=== PATIENT | female | born 1965 | race Caucasian/White ===

== ENCOUNTER 2017-03-22 11:23 | Emergency (ER) | payer OTHER ==
[~2017-03-22] VITALS: Ht 160 cm; Wt 79.5 kg
[~2017-03-22 11:23] MED LIST: PAROXETINE20 MG PO
[2017-03-22 12:04] LABS: HEMATOCRIT 39.4 % (37.0-47.0); HEMOGLOBIN 13.6 g/dl (12.0-16.0); IMMATURE GRANULOCYTES 0.1 % (0.0-1.0); MEAN CELL VOLUME 89.7 fL CALC (80.0-100.0); MEAN CORPUSCULAR HGB CONC 34.5 g/L CALC (32.0-36.0); NEUT# 3.88 thou/uL (2.00-7.15); RED BLOOD COUNT 4.39 mill/uL (4.20-5.60); RED CELL DISTRI WIDTH 14.2 % (11.5-15.5)
[2017-03-22 12:09] LABS: ALBUMIN 4.8 g/dL (3.2-5.0); ALKALINE PHOSPHATASE 86 u/l (38-126); ANION GAP 18 (6-22 (CALC)); BILIRUBIN, TOTAL 0.8 mg/dL (0.0-1.4); BUN 12 mg/dL (7-17); BUN/CREATININE RATIO 16 (12-20 (CALC)); CARBON DIOXIDE 20 mmol/l (22-30); CHLORIDE 107 mmol/l (95-108); CREATININE 0.7 mg/dL (0.5-1.0); GFR > 60 ML/MIN (>=60 (CALC)); GFR FOR AFR.AMER. > 60 ML/MIN (>=60 (CALC)); GLUCOSE 106 mg/dL (65-105); POTASSIUM 3.6 mmol/l (3.5-5.1); SGOT/AST 37 u/l (14-36); SGPT/ALT 48 u/l (9-52); SODIUM 140 mmol/l (137-146); TOTAL PROTEIN 8.4 g/dL (6.3-8.2)
[2017-03-22 12:19] LABS: MYOGLOBIN 24 ng/mL (0 - 62)
[2017-03-22] MEDS ORDERED: ZOFRAN ODT4 MG PO (14:07)
[2017-03-22] MEDS ORDERED: MECLIZINE25 MG PO (14:07)
[2017-03-22 14:12] VITALS: BP 127/65
[2017-03-22 14:34] LABS: URINE BILIRUBIN - DIPSTICK NEGATIVE (NEGATIVE); URINE BLOOD DIPSTICK NEGATIVE (NEGATIVE); URINE CLARITY CLEAR; URINE COLOR YELLOW; URINE GLUCOSE - DIPSTICK NEGATIVE (NEGATIVE); URINE KETONE NEGATIVE (NEGATIVE); URINE LEUK ESTERASE NEGATIVE (NEGATIVE); URINE NITRITE - DIPSTICK NEGATIVE (Negative); URINE PH 7.5 (4.5-8.0); URINE PROTEIN - DIPSTICK NEGATIVE (NEG-TRACE); URINE SPECIFIC GRAVITY 1.015; URINE UROBILINOGEN - DIPSTICK 0.2 E.U./dL (0.2)
== END 2017-03-22 14:20 | disposition home or self-care (01) | DRG 149 ==
LOC: ED 11:23
PROVIDERS: Emergency Medicine
DX: H81.10 Benign paroxysmal vertigo, unspecified ear (principal); H53.143 Visual discomfort, bilateral; R11.2 Nausea with vomiting, unspecified; R50.9 Fever, unspecified

== ENCOUNTER 2022-01-04 12:53 | Emergency (ER) | payer OTHER ==
[~2022-01-04] VITALS: Ht 160 cm; Wt 83.0 kg
[2022-01-04] VITALS (7 sets, daily range): BP systolic 122–149; BP diastolic 62–85
[~2022-01-04 12:53] MED LIST changes: +MECLIZINE25 MG PO; +ZOFRAN ODT4 MG PO
[2022-01-04] MEDS ORDERED: HYDROCHLOROT25 MG PO (13:08)
[2022-01-04] MEDS ORDERED: LEVOTHYROXIN25 MC1 PO (13:09)
[2022-01-04 14:28] LABS: HEMATOCRIT 40.8 % (37.0-47.0); HEMOGLOBIN 13.4 g/dl (12.0-16.0); IMMATURE GRANULOCYTES 0.1 % (0.0-5.0); MEAN CELL VOLUME 92.3 fL CALC (80.0-100.0); MEAN CORPUSCULAR HGB 30.3 pG CALC (26.0-32.0); MEAN CORPUSCULAR HGB CONC 32.8 g/dL CAL (32.0-36.0); NEUT# 3.63 thou/uL (2.00-7.15); RED BLOOD COUNT 4.42 mill/uL (4.20-5.60); RED CELL DISTRI WIDTH 14.3 % (11.5-15.5)
[2022-01-04] MEDS ORDERED: TRAMADOL HYDROC50 M1 PO (14:53)
== END 2022-01-04 15:16 | disposition home or self-care (01) | DRG 552 ==
LOC: ED 12:53
PROVIDERS: Family Medicine
DX: M54.50 Low back pain, unspecified (principal); M79.604 Pain in right leg; I10 Essential (primary) hypertension

== ENCOUNTER 2024-04-13 21:49 | Emergency (ER) | payer OTHER ==
[~2024-04-13] VITALS: Ht 160 cm; Wt 85.6 kg
[~2024-04-13 21:49] MED LIST changes: +HYDROCHLOROT25 MG PO; +LEVOTHYROXIN25 MC1 PO; +TRAMADOL HYDROC50 M1 PO
[2024-04-13 22:00] VITALS: BP 162/94
[2024-04-13] MEDS ORDERED: SODIUM CHLORIDE 0.9% 1,000 ML IV ONE (22:00)
[2024-04-13] MEDS ORDERED: MECLIZINE HCL 25 MG/TAB PO ONE (22:05)
[2024-04-13] MEDS ORDERED: diazePAM 10 MG/2 ML VIAL IV ONE (22:05)
[2024-04-13 22:19] LABS: BASO% 0.4 % (0-3); EOS% 4.1 % (0-8); HEMATOCRIT 39.3 % (37.0-47.0); HEMOGLOBIN 13.2 g/dl (12.0-16.0); IMMATURE GRANULOCYTES 0.3 % (0.0-5.0); LYMPH% 36.3 % (15-41); MEAN CELL VOLUME 90.1 fL CALC (80.0-100.0); MEAN CORPUSCULAR HGB 30.3 pG CALC (26.0-32.0); MEAN CORPUSCULAR HGB CONC 33.6 g/dL CAL (32.0-36.0); MONO% 12.5 % (2-13); NEUT# 3.66 thou/uL (2.00-7.15); NEUT% 46.4 % (42-76); RED BLOOD COUNT 4.36 mill/uL (4.20-5.60); RED CELL DISTRI WIDTH 13.6 % (11.5-15.5)
[2024-04-13 22:25] VITALS: BP 148/85
[2024-04-13 22:30] VITALS: BP 143/90
[2024-04-13 22:40] LABS: ALBUMIN 4.4 g/dL (3.2-5.0); ALKALINE PHOSPHATASE 102 u/l (38-126); BILIRUBIN, TOTAL 0.7 mg/dL (0.02-1.3); BUN 16 mg/dL (7-17); BUN/CREATININE RATIO 19 (12-20 (CALC)); CHLORIDE 109 mmol/l (95-108); CREATININE 0.9 mg/dL (0.5-1.0); ESTIMATED GFR 75 ML/MIN (>=90 (CALC)); POTASSIUM 3.8 mmol/l (3.5-5.1); SGOT/AST 35 u/l (14-36); SODIUM 140 mmol/l (137-146); TOTAL PROTEIN 7.7 g/dL (6.3-8.2)
[2024-04-13 22:42] LABS: ANION GAP 10 (6-22 (CALC)); CARBON DIOXIDE 25 mmol/l (22-30)
[2024-04-13 23:00] VITALS: BP 166/76
[2024-04-13 23:06] LABS: URINE BILIRUBIN - DIPSTICK Negative (NEGATIVE); URINE GLUCOSE - DIPSTICK Negative (NEGATIVE); URINE KETONE Negative (NEGATIVE); URINE NITRITE - DIPSTICK Negative (Negative); URINE PH 5.5 (4.5-8.0); URINE PROTEIN - DIPSTICK Negative (NEG-TRACE); URINE SPECIFIC GRAVITY 1.025; URINE UROBILINOGEN - DIPSTICK 0.2 E.U./dL (0.2)
[2024-04-13 23:10] LABS: TSH, 3RD GENERATION 2.98 uIU/mL (0.47 - 4.68)
[2024-04-13 23:11] LABS: URINE COLOR Yellow; URINE LEUK ESTERASE Small (NEGATIVE)
[2024-04-13] MEDS ORDERED: DiphenhydrAMINE HCL 50 MG/ML SDV IV ONE (23:25)
[2024-04-13 23:26] LABS: URINE BLOOD DIPSTICK Negative (NEGATIVE)
[2024-04-13 23:27] LABS: URINE BACTERIA MODERATE hpf; URINE EPITHELIAL CELLS FEW EPI/hpf (0-FEW); URINE MUCUS FEW hpf (NONE-FEW)
[2024-04-14 00:01] VITALS: BP 116/70
[2024-04-14] MEDS ORDERED: PROMETHAZINE HY25 M1 PO (00:14)
[2024-04-14] MEDS ORDERED: MECLIZINE25 MG PO (00:14)
[2024-04-14 00:24] VITALS: BP 116/70
== END 2024-04-14 00:24 | disposition home or self-care (01) | DRG 149 ==
LOC: ED 21:49
PROVIDERS: Family Medicine
DX: R42 Dizziness and giddiness (principal); I10 Essential (primary) hypertension